=== PATIENT | male | born 1995 | race American Indian/Alaskan Native ===

== ENCOUNTER 2021-09-21 22:45 | Emergency (ER) | payer SELFPAY ==
[2021-09-21 23:08] VITALS: BP 140/66
[2021-09-21] MEDS ORDERED: IBUPROFEN 600 MG TAB PO ONE (23:57)
[2021-09-21] MEDS ORDERED: LIDOCAINE VISCOUS 2% 15 ML ORAL LIQD PO ONE (23:57)
[2021-09-21] MEDS ORDERED: predniSONE 20 MG TAB PO ONE (23:57)
[2021-09-21] MEDS ORDERED: AMOXICILLIN/K CLAV 875/125MG TAB PO ONE (23:57)
--- NOTE | 2021-09-22 00:01 | Emergency Department Report ---
ED General Adult HPI - General Chief complaint: Sore Throat Stated complaint: THROAT PAIN Source: patient Mode of arrival: Ambulatory Limitations: No Limitations - History of Present Illness Initial comments: Patient is a 25-year-old -Al[place]ian male with no past medical history presents to the ED with complaint of acute onset persistent sore throat with dysphagia, drooling and anterior cervical lymphadenopathy for the last 2 days. Patient states that he has not been able to eat much because of persistent severe sore throat which gets worse with swallowing or speech. Patient denies hoarseness, swollen throat, swollen lips or tongue, nasal and sinus congestion, headache, ear pain, nausea and vomiting or diarrhea, chest pain or shortness of breath and cough, fever and chills or abdominal pain. MD Complaint: Sore throat, dysphagia, drooling, lymphadenopathy -: Sudden, days(s) (2) Location: mouth Radiation: non-radiation Severity scale (0 -10): 7 Quality: aching, sharp Consistency: constant Improves with: none Worsens with: eating, other (Swallowing and eating) Associated Symptoms: denies other symptoms. denies: confusion, chest pain, cough, diaphoresis, fever/chills, malaise, nausea/vomiting, rash, seizure, shortness of breath, syncope, weakness Treatments Prior to Arrival: none - Related Data Previous Rx's Medication Instructions Recorded Last Taken Type Ibuprofen [Motrin] 800 mg PO Q8HR PRN #30 tablet 09/21/21 Unknown Rx Lidocaine Viscous 2% 15 ml PO Q6H PRN #120 ml 09/21/21 Unknown Rx Penicillin V Potassium 500 mg PO Q6H #40 tab 09/21/21 Unknown Rx predniSONE [Deltasone] 40 mg PO QDAY #10 tab 09/21/21 Unknown Rx Allergies Allergy/AdvReac Type Severity Reaction Status Date / Time No Known Allergies Allergy Unverified 09/21/21 23:07 ED Review of Systems ROS: Stated complaint: THROAT PAIN Other details as noted in HPI Constitutional: denies: chills, fever Eyes: denies: eye pain, eye discharge, vision change ENT: throat pain (Sore throat). denies: ear pain Respiratory: denies: cough, shortness of breath, wheezing Cardiovascular: denies: chest pain, palpitations Endocrine: no symptoms reported Gastrointestinal: denies: abdominal pain, nausea, diarrhea Genitourinary: denies: urgency, dysuria Musculoskeletal: denies: back pain, joint swelling, arthralgia Skin: denies: rash, lesions Neurological: denies: headache, weakness, paresthesias Psychiatric: denies: anxiety, depression Hematological/Lymphatic: denies: easy bleeding, easy bruising ED Past Medical Hx - Past Medical History Previous Medical History?: No - Surgical History Past Surgical History?: No - Medications Home Medications: Home Medications Medication Instructions Recorded Confirmed Last Taken Type Ibuprofen [Motrin] 800 mg PO Q8HR PRN #30 tablet 09/21/21 Unknown Rx Lidocaine Viscous 2% 15 ml PO Q6H PRN #120 ml 09/21/21 Unknown Rx Penicillin V Potassium 500 mg PO Q6H #40 tab 09/21/21 Unknown Rx predniSONE [Deltasone] 40 mg PO QDAY #10 tab 09/21/21 Unknown Rx ED Physical Exam - General Limitations: No Limitations General appearance: alert, in no apparent distress - Head Head exam: Present: atraumatic, normocephalic, normal inspection - Eye Eye exam: Present: normal appearance, PERRL, EOMI Pupils: Present: normal accommodation - ENT ENT exam: Present: mucous membranes moist, TM's normal bilaterally, normal external ear exam, other (Mild erythematous oropharynx and tonsils with mild white exudates; no sign of peritonsillar abscess) - Neck Neck exam: Present: normal inspection, full ROM, lymphadenopathy. Absent: tenderness - Respiratory Respiratory exam: Present: normal lung sounds bilaterally. Absent: respiratory distress, wheezes, rales, rhonchi, chest wall tenderness, accessory muscle use, decreased breath sounds, prolonged expiratory - Cardiovascular Cardiovascular Exam: Present: regular rate, normal rhythm, normal heart sounds. Absent: systolic murmur, diastolic murmur, rubs, gallop - GI/Abdominal GI/Abdominal exam: Present: soft, normal bowel sounds. Absent: tenderness, guarding, hyperactive bowel sounds, hypoactive bowel sounds, organomegaly, mass - Extremities Exam Extremities exam: Present: normal inspection, full ROM, normal capillary refill. Absent: tenderness - Back Exam Back exam: Present: normal inspection, full ROM. Absent: tenderness, CVA tenderness (R), CVA tenderness (L), muscle spasm, paraspinal tenderness, vertebral tenderness - Neurological Exam Neurological exam: Present: alert, oriented X3, CN II-XII intact, normal gait, reflexes normal - Psychiatric Psychiatric exam: Present: normal affect, normal mood - Skin Skin exam: Present: warm, dry, intact, normal color. Absent: rash ED Course Vital Signs 09/21/21 23:03 Temperature 99.2 F Pulse Rate 87 Respiratory 18 Rate Blood Pressure 140/66 O2 Sat by Pulse 96 Oximetry ED Medical Decision Making - Medical Decision Making This is a 25-year-old -Algerian male with no past medical history presents to the ED with complaint of acute onset persistent sore throat with dysphagia, drooling and anterior cervical lymphadenopathy for the last 2 days. Patient states that he has not been able to eat much because of persistent severe sore throat which gets worse with swallowing or speech. In the ED, patient is alert and oriented x3 and is not in any distress. Patient is hemodynamically stable. Patient was treated for pain in the ED and also given initial oral antibiotics. Based on the history and physical exam findings, the patient was discharged home on pain medications and antibiotics for suspected streptococcal pharyngitis or tonsillitis. Patient was advised to follow-up with his primary care physician in 7 to 10 days for reevaluation or return to the ED immediately if symptoms get worse - Differential Diagnosis Strep pharyngitis; strep tonsillitis; viral pharyngitis; URI; Critical care attestation.: If time is entered above; I have spent that time in minutes in the direct care of this critically ill patient, excluding procedure time. ED Disposition Clinical Impression: Acute bacterial tonsillitis, Acute bacterial pharyngitis Disposition: HOME / SELF CARE / HOMELESS Is pt being admited?: No Does the pt Need Aspirin: No Condition: Stable Instructions: Tonsillitis, [id number], Sore Throat, [id number] Additional Instructions: Take medication with food, drink plenty of fluids and follow-up with your primary care physician in 7 to 10 days for reevaluation. Return to the ED immediately if symptoms get worse. Prescriptions: predniSONE [Deltasone] 40 mg PO QDAY #10 tab Lidocaine Viscous 2% 15 ml PO Q6H PRN #120 ml PRN Reason: Sore Throat Ibuprofen [Motrin] 800 mg PO Q8HR PRN #30 tablet PRN Reason: Pain , Severe (7-10) Penicillin V Potassium 500 mg PO Q6H #40 tab Referrals: [facility] [Provider Group] - 7-10 days Forms: Work/School Release Form(ED) Time of Disposition: 23:58 Print Language: DIVEHI
== END 2021-09-22 00:13 | disposition home or self-care (01) ==
LOC: ED 22:45
DX: J03.90 Acute tonsillitis, unspecified (principal)
CPT/HCPCS: 99282